=== PATIENT | male | born 1990 | race Two or more races ===

== ENCOUNTER 2022-11-16 21:12 | Emergency (ER) | payer OTHER ==
[~2022-11-16] VITALS: Ht 195.6 cm; Wt 97.5 kg
[2022-11-17] MEDS ORDERED: DUI500 PO (00:23)
[2022-11-17] MEDS ORDERED: CONZIP100 MG PO (00:24)
== END 2022-11-17 00:48 | disposition home or self-care (01) ==
LOC: ER 21:12
DX: S61.216A Laceration without foreign body of right little finger without damage to nail, initial encounter (principal); S63.256A Unspecified dislocation of right little finger, initial encounter; W45.8XXA Other foreign body or object entering through skin, initial encounter; Y93.89 Activity, other specified; Y92.89 Other specified places as the place of occurrence of the external cause; Y99.9 Unspecified external cause status